=== PATIENT | male | born 1980 | race Caucasian/White ===

== ENCOUNTER → 2017-01-26 | Outpatient (CLI) | payer OTHER ==
[~2017-01-26] MED LIST: DOXY100C2 PO; GADOBUTROL 10 MMOL/10 ML VIAL IV ONE
--- NOTE | 2017-01-26 09:27 | KCIC ---
MRI Brain without contrast History: Headaches, blurred vision, nausea for 4 months Technique: Multiplanar, multisequential noncontrast MR imaging was performed of the brain. Contrast: None Comparison: None Findings: There is no evidence of recent infarct or cytotoxic edema. The ventricles, sulci, and cisterns are within normal limits in size and configuration. There is no significant midline shift, intraaxial mass effect, or focal abnormal extra-axial fluid collection. There is no significant signal abnormality of the brain parenchyma. There is preservation of the major intracranial flow-voids at the skull base. The mastoid air cells are aerated. The cerebellar tonsils are normal in location. There is no significant abnormality of the pineal gland or pituitary gland. There is mild bilateral ethmoid air cell mucosal thickening slightly greater on the right. There is likely small mucous retention cyst of the anterior left maxillary sinus up to 1 cm. There is preserved marrow signal of the clivus. Impression: 1. There is no significant intracranial abnormality. Electronically signed by: Chris Ziegler MD (01/26/2017 9:23 AM) [id number]
== END | disposition home or self-care (01) ==
LOC: KCIC MRI 08:27
PROVIDERS: ATTEND Nurse Practitioner
DX: H53.8 Other visual disturbances (principal); R51 Headache; R11.0 Nausea
CPT/HCPCS: 70551